=== PATIENT | male | born 1975 | race Caucasian/White ===

== ENCOUNTER 2020-08-23 14:56 | Outpatient (CLI) | payer BC ==
[2020-08-23 20:16] LABS: ALBUMIN/GLOBULIN RATIO 1.4 (1.0-2.2); BILIRUBIN,TOTAL 0.9 mg/dL (0.2-1.0); CALCIUM 8.7 mg/dL (8.5-10.3); MAGNESIUM 2.1 mg/dL (1.7-2.8); POTASSIUM 4.1 mmol/L (3.5-5.0); TOTAL PROTEIN 6.9 g/dL (6.7-8.2)
== END 2020-08-23 14:57 | disposition home or self-care (01) ==
LOC: LAB.S 14:56
PROVIDERS: ATTEND Physician Assistant Medical
DX: R06.6 Hiccough (principal)
CPT/HCPCS: 36415; 80053; 83735